=== PATIENT | male | born 1995 | race Caucasian/White ===

== ENCOUNTER → 2016-11-02 | Outpatient (CLI) | payer BC, OTHER ==
[2016-11-02 13:40] LABS: BLOOD UREA NITROGEN 20 MG/DL (7-18); CREATININE FOR GFR 1.23 MG/DL (0.70-1.30)
== END ==
LOC: M LAB 12:51
PROVIDERS: ATTEND Psychiatry & Neurology Neurology
DX: Q61.3 Polycystic kidney, unspecified (principal)

== ENCOUNTER → 2016-12-29 | Outpatient (REF) | payer OTHER ==
[2016-12-29 14:30] LABS: BASO % 0.4 % (0.0-1.0); EOS % 1.1 % (0.0-3.0); LARGE UNSTAINED CELL # 0.1 K/mm3 (0.0-0.4); LYMPH # 1.4 K/mm3 (1.5-6.5); LYMPH % 30.3 % (24.0-44.0); MEAN CORPUSCULAR HEMOGLOBIN 30.2 pg (27.0-33.0); MEAN CORPUSCULAR VOLUME 88.7 fl (80.0-96.0); MONO # 0.2 K/mm3 (0.0-0.8); MONO % 5.2 % (0.0-5.0); NEUTROPHILS # 2.8 K/mm3 (1.8-7.7); NEUTROPHILS % 61.9 % (36.0-66.0); PLATELET COUNT, AUTOMATED 281 k/mm3 (150-450); RED CELL DISTRIBUTION WIDTH 12.1 % (11.5-14.5); WHITE BLOOD COUNT 4.6 K/mm3 (4.0-10.0)
[2016-12-29 14:47] LABS: VITAMIN B12 LEVEL 520 PG/ML (247-911)
[2016-12-29 14:48] LABS: FOLATE 9.7 NG/ML (>5.4)
[2016-12-29 14:52] LABS: ALBUMIN 4.1 GM/DL (3.2-5.2); ALBUMIN/GLOBULIN RATIO 1.28 (1.00-1.93); ALKALINE PHOSPHATASE 55 U/L (45-117); ALT/SGPT 29 U/L (12-78); ANION GAP 8 MEQ/L (8-16); AST/SGOT 28 U/L (15-37); BILIRUBIN,TOTAL 0.5 MG/DL (0.2-1.0); BLOOD UREA NITROGEN 21 MG/DL (7-18); CALCIUM LEVEL 9.3 MG/DL (8.5-10.1); CARBON DIOXIDE LEVEL 28 MEQ/L (21-32); CHLORIDE LEVEL 105 MEQ/L (98-107); CREATININE FOR GFR 1.25 MG/DL (0.70-1.30); GLUCOSE, FASTING 65 MG/DL (70-105); POTASSIUM SERUM 4.3 MEQ/L (3.5-5.1); SODIUM LEVEL 141 MEQ/L (136-145); TOTAL PROTEIN 7.3 GM/DL (6.4-8.2)
[2016-12-29 15:26] LABS: ERYTHROCYTE SEDIMENTATION RATE 6 mm/hr (0-15)
[2016-12-31 15:11] LABS: VITAMIN E LEVEL 7.6 mg/L (5.3-17.5)
== END ==
LOC: M LABNEURO 12:56
PROVIDERS: ATTEND Psychiatry & Neurology Neurology
DX: H53.9 Unspecified visual disturbance (principal); H55.00 Unspecified nystagmus; Z13.29 Encounter for screening for other suspected endocrine disorder

== ENCOUNTER → 2017-01-05 | Outpatient (CLI) | payer OTHER ==
[2017-01-05 20:38] LABS: BLOOD UREA NITROGEN 26 MG/DL (7-18); CREATININE FOR GFR 1.27 MG/DL (0.70-1.30)
== END ==
LOC: M LRY 17:05
PROVIDERS: ATTEND Psychiatry & Neurology Neurology
DX: R03.0 Elevated blood-pressure reading, without diagnosis of hypertension (principal)

== ENCOUNTER → 2017-08-18 | Outpatient (REF) | payer OTHER ==
[2017-08-18 18:23] LABS: FERRITIN 182 NG/ML (26-388); PERCENT SATURATION 21.3 % (19.7-50.0); TOTAL IRON BINDING CAPACITY 314 UG/DL (250-450)
[2017-08-18 18:27] LABS: FOLATE 9.3 NG/ML; VITAMIN B12 LEVEL 623 PG/ML
== END ==
LOC: M LAB REF 16:59
DX: D64.9 Anemia, unspecified (principal)
CPT/HCPCS: 82746

== ENCOUNTER → 2018-04-26 | Outpatient (REF) | payer OTHER | LOC: M SFHCLERA 12:28 | DX: Z20.2 Contact with and (suspected) exposure to infections with a predominantly sexual mode of transmission (principal) ==

== ENCOUNTER → 2018-05-03 | Outpatient (CLI) | payer OTHER | LOC: M LRY 16:02 | DX: S69.91XA Unspecified injury of right wrist, hand and finger(s), initial encounter (principal); M79.89 Other specified soft tissue disorders; X58.XXXA Exposure to other specified factors, initial encounter; Y92.9 Unspecified place or not applicable; W22.8XXA Striking against or struck by other objects, initial encounter | CPT/HCPCS: 73110 ==

== ENCOUNTER 2019-02-19 10:57 | Emergency (ER) | payer BC, OTHER ==
[~2019-02-19] VITALS: Ht 182.9 cm; Wt 65.0 kg
[2019-02-19] MEDS ORDERED: SPIR-10 PO (11:05)
[2019-02-19] MEDS ORDERED: POTA10808 PO (11:05)
[2019-02-19] MEDS ORDERED: LISI-538 PO (11:05)
[2019-02-19 11:32] LABS: HEMATOCRIT 37.7 % (42.0-52.0); HEMOGLOBIN 12.6 g/dl (13.5-17.5); MEAN CORPUSCULAR HEMOGLOBIN 29.9 pg (27.0-33.0); MEAN CORPUSCULAR HGB CONC 33.4 g/dl (32.0-36.5); MEAN CORPUSCULAR VOLUME 89.3 fl (80.0-96.0); PLATELET COUNT, AUTOMATED 264 10^3/uL (150-450); RED BLOOD COUNT 4.22 10^6/uL (4.30-6.10); WHITE BLOOD COUNT 6.6 10^3/uL (4.0-10.0)
--- NOTE | 2019-02-19 11:53 | REP ---
Clinical: Left flank pain. History of polycystic kidney disease. Comparison: 08/16/2016. Findings: The bilateral kidneys are enlarged and demonstrate innumerable simple and complex cysts including complex cyst in the lower pole right kidney measuring 4.7 cm maximal diameter as well as complex cysts in the upper and lower pole left kidney measuring 4.4 cm and 5.7 cm maximal diameter respectively. There is no evidence for hydronephrosis. Bladder demonstrates wall thickening but without obvious mass lesion. Right kidney measures 21.2 x 10.4 x 9.4 cm. Left kidney measures 19.3 x 8.9 x 10.5 cm. Impression: Evidence for polycystic kidney disease with simple and complex cysts noted. No hydronephrosis. Further pathology cannot be excluded based on ultrasound. Electronically Signed by Fab Adams MD 02/19/2019 11:44 A
[2019-02-19] MEDS ORDERED: NS 1,000 ML IV ONE (12:00)
[2019-02-19] MEDS ORDERED: KETOROLAC 30 MG/ML VIAL (J1885) IV ONE (12:00)
[2019-02-19] MEDS ORDERED: MORPHINE 4 MG/ML 1ML VIAL/SYRINGE (J2270) IV ONE (12:15)
[2019-02-19 12:29] LABS: BLOOD UREA NITROGEN 27 MG/DL (7-18); CALCIUM LEVEL 9.4 MG/DL (8.5-10.1); CARBON DIOXIDE LEVEL 28 MEQ/L (21-32); CHLORIDE LEVEL 106 MEQ/L (98-107); CREATININE FOR GFR 1.53 MG/DL (0.70-1.30); GLOMERULAR FILTRATION RATE > 60.0 (>60); GLUCOSE, FASTING 85 MG/DL (70-100); POTASSIUM SERUM 4.4 MEQ/L (3.5-5.1); SODIUM LEVEL 140 MEQ/L (136-145)
--- NOTE | 2019-02-19 12:54 | REP ---
Clinical: Left flank pain. Technique: Axial noncontrast images from the lung bases to the pubic symphysis with coronal and sagittal re-formations. Findings: Evidence for polycystic kidney disease with innumerable bilateral cysts including few scattered proteinaceous complex cysts. No obvious hydroureteronephrosis, significant intrarenal or obstructing ureteral calculi. No perinephric inflammatory stranding. Associated scattered hepatic cysts are also identified. Spleen, pancreas, gallbladder, and bilateral adrenal glands are normal for noncontrast evaluation. The enteric system is without obstruction or acute inflammatory process. Pelvis demonstrates relatively normal bladder and prostate/seminal vesicles. No ascites. No free air. No adenopathy. Abdominal aorta without aneurysm. Musculoskeletal structures are intact. The lung bases are clear. Musculoskeletal structures are intact. Impression: Evidence for polycystic kidney disease including few hepatic cysts. No obvious acute process. Electronically Signed by Fab Adams MD 02/19/2019 12:45 P
[2019-02-19 13:14] VITALS: BP 119/72
[2019-02-19] MEDS ORDERED: NORC1TAB7 PO (13:21)
--- NOTE | 2019-02-20 13:27 | ED PDOC ---
Post-Departure Follow-Up shobha de leon faxed formal report of renal us for fu Catrachito Chung MD Feb 20, 2019 13:27
== END 2019-02-19 13:41 | disposition home or self-care (01) ==
LOC: M ED 10:57
DX: R10.9 Unspecified abdominal pain (principal); R11.0 Nausea; Q61.3 Polycystic kidney, unspecified; K76.89 Other specified diseases of liver; I10 Essential (primary) hypertension; Z79.899 Other long term (current) drug therapy
CPT/HCPCS: 74176; 76775; 80048; 81001; 85027; 96361; 96374; 99284; J2270

== ENCOUNTER → 2019-03-01 | Outpatient (CLI) | payer BC, OTHER ==
[~2019-03-01] MED LIST: ISOVUE-370 76% 100ML VIAL (Q9967) As Ordered ONE; LISI-538 PO; NORC1TAB7 PO; POTA10808 PO; SPIR-10 PO
--- NOTE | 2019-03-02 07:54 | REP ---
CT abdomen without and with IV contrast: History: Polycystic kidney disease. Polycystic liver changes. Abdomen pain. Comparison CT study is from February 19, 2019. CT contrast dose: 100 ml of intravenous Isovue [address] findings: Preliminary digital devulcanizer charger radiograph demonstrates a normal bowel gas pattern. There are multiple small hepatic cysts. The largest of these measures only 1.0 cm. No abnormality is seen in the spleen or pancreas. The gallbladder is small and contracted and appears unremarkable. The kidneys show marked enlargement with innumerable renal cysts enlarging the kidneys and replacing and thinning the cortex. Right renal length measurement is 19.3 cm and the left is 20.9 cm. No renal mass lesion is observed. No hydronephrosis is seen. No intrarenal calculus is observed. There are several small hyperdense cysts consistent with proteinaceous material. There is no evidence of ascites. Small and large intestinal bowel loops are normal. No bony destructive lesion is seen. Impression: Polycystic kidney disease changes. There are a few small cysts in the liver. No hydronephrosis or renal mass lesion is observed. Electronically Signed by Mj Fuentes MD 03/02/2019 11:59 A
== END ==
LOC: M RAD 16:42
PROVIDERS: ATTEND Internal Medicine Nephrology
DX: R10.9 Unspecified abdominal pain (principal); Q61.2 Polycystic kidney, adult type; Q44.6 Cystic disease of liver
CPT/HCPCS: 74170; Q9967

== ENCOUNTER → 2019-03-18 | Outpatient (REF) | payer BC, OTHER ==
[~2019-03-18] MED LIST changes: -ISOVUE-370 76% 100ML VIAL (Q9967) As Ordered ONE
[2019-03-18 18:11] LABS: APPEARANCE, URINE HAZY (CLEAR); BACTERIA, URINE AUTO NEGATIVE (NEGATIVE); BILIRUBIN, URINE AUTO NEGATIVE (NEGATIVE); BLOOD, URINE BLOOD 2+ (NEGATIVE); COLOR, URINE YELLOW (YELLOW); GLUCOSE, URINE (UA) AUTO NEGATIVE (NEGATIVE); KETONE, URINE AUTO NEGATIVE (NEGATIVE); LEUKOCYTE ESTERASE, URINE AUTO NEGATIVE (NEGATIVE); MUCUS, URINE SMALL (NEGATIVE); NITRITE, URINE AUTO NEGATIVE (NEGATIVE); PROTEIN, URINE AUTO 1+ mg/dL (NEGATIVE); RBC, URINE AUTO 1 /HPF (0-3); SPECIFIC GRAVITY URINE AUTO 1.009 (1.002-1.035); SQUAMOUS EPITHELIAL CELL UR AU 0 /HPF (0-6); UROBILINOGEN, URINE AUTO 0.2 mg/dL (0.0-2.0); WBC, URINE AUTO 4 /HPF (0-3)
== END ==
LOC: M SMT 16:57
PROVIDERS: ATTEND Nurse Practitioner Women's Health
DX: N32.89 Other specified disorders of bladder (principal); R31.29 Other microscopic hematuria

== ENCOUNTER 2019-08-16 10:48 | Observation (INO) | payer BC, OTHER ==
[~2019-08-16] VITALS: Ht 180.3 cm; Wt 65.0 kg
[~2019-08-16 10:48] MED LIST changes: +lisinopriL 20 MG TAB PO SCH
--- NOTE | 2019-08-16 11:51 | REP ---
Clinical: Lower back pain. History of polycystic kidney disease. Comparison: 03/01/2019. Findings: Lung bases are clear. Enlarged polycystic kidneys and hepatic cysts are again noted and essentially unchanged. Spleen, pancreas, gallbladder and bilateral adrenal glands are normal. The enteric system is without obstruction or acute inflammatory process. Mild fecal stasis cannot be excluded and should be correlated clinically. Bladder and prostate gland are grossly unremarkable. No ascites. No free air. No obvious adenopathy. Abdominal aorta without aneurysm. Musculoskeletal structures are intact. Impression: 1. Known polycystic kidney disease with few scattered hepatic cysts. 2. No obvious acute process. Electronically Signed by Fab Adams MD 08/16/2019 11:43 A
[2019-08-16 11:57] LABS: BASO % 0.2 % (0.0-1.0); EOS % 0.2 % (0.0-3.0); HEMATOCRIT 43.2 % (42.0-52.0); HEMOGLOBIN 14.3 g/dl (13.5-17.5); LYMPH # 1.2 10^3/uL (1.5-5.0); LYMPH % 11.5 % (24.0-44.0); MEAN CORPUSCULAR HEMOGLOBIN 28.9 pg (27.0-33.0); MEAN CORPUSCULAR HGB CONC 33.1 g/dl (32.0-36.5); MEAN CORPUSCULAR VOLUME 87.4 fl (80.0-96.0); MONO % 9.9 % (0.0-5.0); PLATELET COUNT, AUTOMATED 248 10^3/uL (150-450); RED BLOOD COUNT 4.94 10^6/uL (4.30-6.10); WHITE BLOOD COUNT 10.3 10^3/uL (4.0-10.0)
[2019-08-16 12:25] LABS: ALBUMIN 4.2 GM/DL (3.2-5.2); BILIRUBIN,DIRECT 0.2 MG/DL (0.0-0.2); BILIRUBIN,TOTAL 0.6 MG/DL (0.2-1.0); TOTAL PROTEIN 7.7 GM/DL (6.4-8.2)
[2019-08-16] MEDS ORDERED: NS 1,000 ML IV ONE (12:30)
[2019-08-16] MEDS ORDERED: HYDR-3713 PO (13:21)
--- NOTE | 2019-08-16 13:34 | HPEPDOC ---
General Date of Admission 08/16/19 Date of Service: Aug 16, 2019 Chief Complaint The patient is a 24-year-old male admitted with a reason for visit of Abnormal Labs. Source: Patient Exam Limitations: No limitations Timing/Duration: 24 hours Severity: Moderate History of Present Illness Patient is 24 years old male with past medical history of hypertension and polycystic kidney diseases presented hospital with bilateral flank pain. Patient stated that yesterday he started feeling pain all over his body associated with weakness. He did not have any nausea, vomiting, changes in urine, fever or chills Today in the area safety manager office patient was found to have creatinine 1.9 and he was recommended to be admitted to the hospital. In emergency room patient was found to have leukocytes count 10.3, urinalysis show microhematuria, patient's afebrile, abdominal CAT scan shows enlarged polycystic kidneys and hepatic cysts essentially unchanged. Patient denies fever, chills, nausea, vomiting, shortness of breath, chest pain, diarrhea or dysuria Home Medications Scheduled Lisinopril (Lisinopril) 20 Mg Tablet, 20 MG PO QAM, (Reported) Potassium Citrate (Potassium Citrate 10MEQ (Urocit-K)) 10 Meq Tablet.er, 2 TAB PO DAILY, (Reported) Spironolactone (Spironolactone) 25 Mg Tablet, 25 MG PO QAM, (Reported) Scheduled PRN Hydrocodone/Acetaminophen (Hydrocodone-Acetamin 5-325 mg) 1 Each Tablet, 1 TAB PO TID PRN for PAIN, (Reported) MDD 4 Allergies Coded Allergies: No Known Allergies (Unverified , 02/19/19) Past Medical History Medical History Polycystic kidney diseases, hypertension Family History Father had diabetes,polycystic kidney diseases currently on dialysis, hypertension Social History * Smoker: Denies Alcohol: Denies Drugs: denies A-FIB/CHADSVASC A-FIB History Current/History of A-Fib/PAF?: No Current PO Anticoag Therapy: No Review of Systems Constitutional: Reports: Weakness; Denies: Fever Eyes: Denies: Pain, Vision change ENT: Denies: Head Aches, Ear Pain Skin: Denies: Rash, Lesions Pulmonary: Denies: Dyspnea, Cough Cardiovascular: Denies: Chest Pain, Palpitations Gastrointestinal: Denies: Nausea, Vomiting Genitourinary: Reports: Other Symptoms (bilateral flank pain); Denies: Dysuria, Frequency Hematologic: Denies: Bruising Endocrine: Denies: Polydipsia Musculoskeletal: Denies: Neck Pain, Back Pain Neurological: Denies: Weakness Psych: Reports: Mood Normal Physical Examination General Exam: Positive: Alert, Cooperative Eye Exam: Positive: PERRLA Neck Exam: Positive: Supple; Negative: JVD Chest Exam: Positive: Clear to auscultation Heart Exam: Positive: Rate Normal Telemetry: Positive: No significant arrhythmia Abdomen Exam: Positive: Normal bowel sounds Extremity Exam: Negative: Clubbing Skin Exam: Positive: Nl turgor and temperature Neuro Exam: Positive: Normal Gait, Strength at 5/5 X4 ext, Cranial Nerves 3-12 NL Psych Exam: Positive: Mental status NL Vital Signs Vital Signs Date Time Temp Pulse Resp B/P (MAP) Pulse Ox O2 Delivery O2 Flow Rate FiO2 08/16/19 11:57 08/16/19 10:48 97.7 94 18 100 Room Air Laboratory Data Labs 24H Laboratory Tests 2 08/16/19 11:20: Immature Granulocyte % (Auto) 0.2, Neutrophils (%) (Auto) 78.0H, Lymphocytes (%) (Auto) 11.5L, Monocytes (%) (Auto) 9.9H, Eosinophils (%) (Auto) 0.2, Basophils (%) (Auto) 0.2, Neutrophils # (Auto) 8.0, Lymphocytes # (Auto) 1.2L, Monocytes # (Auto) 1.0H, Eosinophils # (Auto) 0.0, Basophils # (Auto) 0.0, Nucleated Red Blood Cells % (auto) 0.0, Total Bilirubin 0.6, Direct Bilirubin 0.2, Aspartate Amino Transf (AST/SGOT) 26, Alanine Aminotransferase (ALT/SGPT) 32, Alkaline Phosphatase 53, Total Protein 7.7, Albumin 4.2, Albumin/Globulin Ratio 1.20, Lipase 183 08/16/19 11:27: Urine Color YELLOW, Urine Appearance CLEAR, Urine pH 5.0, Urine Specific Lemmon 1.010, Urine Protein 1+H, Urine Glucose (UA) NEGATIVE, Urine Ketones NEGATIVE, Urine Blood 3+H, Urine Nitrite NEGATIVE, Urine Bilirubin NEGATIVE, Urine Urobilinogen 0.2, Urine Leukocyte Esterase NEGATIVE, Urine WBC (Auto) 3, Urine R BC (Auto) 8H, Urine Hyaline Casts (Auto) 0, Urine Bacteria (Auto) NEGATIVE, Urine Squamous Epithelial Cells 0, Urine Sperm (Auto) 08/16/19 11:45: POC Glucose (Misc Panel) 96, POC Sodium (Misc Panel) 137, POC Potassium (Misc Panel) 3.9, POC Chloride (Misc Panel) 99, POC Total CO2 (Misc Panel) 27.0, POC Blood Urea Nitrogen (Misc Panel 25, POC Ionized Calcium (Misc Panel) 4.6, POC Creatinine (Misc Panel) 1.9H, POC Hematocrit (Misc Panel) 43.0 CBC/BMP Laboratory Tests 08/16/19 11:20 Assessment/Plan Patient is 24 years old male with past medical history of hypertension and polycystic kidney diseases presented hospital with bilateral flank pain. Patient stated that yesterday he started feeling pain all over his body associated with weakness. He did not have any nausea, vomiting, changes in urine, fever or chills Today in the area safety manager office patient was found to have creatinine 1.9 and he was recommended to be admitted to the hospital. Problems (1) Acute kidney injury Status: Acute Problem Text: Unknown etiology for now Creatinine elevated to 1.[address] scan did not show ruptured cyst or acute intra-abdominal process Patient doesn't have leukocytosis, he is afebrile, urine analysis shows microhematuria. Unlikely he has a pyelonephritis given no fever, no pyuria Appreciate/agree with area safety manager consult (2) Polycystic kidney disease Status: Acute Problem Text: Follow-up with area safety manager Plan / VTE VTE Prophylaxis Ordered?: No VTE Exclusion Mechanical Proph: Low Risk for VTE BRYCE JASSO DO Aug 16, 2019 13:34
[2019-08-16] MEDS ORDERED: amLODIPine 10 MG TAB PO ONE (14:30)
[2019-08-16 14:45] VITALS: BP 138/96
[2019-08-16] MEDS: NS 1,000 ML IV SCH (14:50)
[2019-08-16] MEDS ORDERED: ACETAMINOPHEN TAB 650MG DOSE (2X325MG) PO PRN (15:00)
[2019-08-16] MEDS: SPIRONOLACTONE 25 MG TAB PO SCH (15:02)
[2019-08-16 15:10] LABS: CALCIUM LEVEL 8.9 MG/DL (8.5-10.1); CREATININE FOR GFR 1.71 MG/DL (0.70-1.30); GLOMERULAR FILTRATION RATE 53.1 (>60); POTASSIUM SERUM 4.1 MEQ/L (3.5-5.1)
[2019-08-16 17:58] LABS: POTASSIUM RANDOM URINE 47.3 MEQ/L; TOTAL PROTEIN,RANDOM URINE 31.3 MG/DL (0.0-12.0)
[2019-08-16 22:00] VITALS: BP 144/88
[2019-08-17] MEDS: NS 1,000 ML IV SCH ×3 (00:40→14:14)
[2019-08-17 06:00] VITALS: BP 128/66
[2019-08-17 06:42] LABS: ALBUMIN 3.3 GM/DL (3.2-5.2); CALCIUM LEVEL 8.9 MG/DL (8.5-10.1); CREATININE FOR GFR 1.56 MG/DL (0.70-1.30); MAGNESIUM LEVEL 2.1 MG/DL (1.8-2.4); PHOSPHORUS LEVEL 3.9 MG/DL (2.5-4.9); POTASSIUM SERUM 4.3 MEQ/L (3.5-5.1)
[2019-08-17] MEDS ORDERED: POTASSIUM CITRATE 1080 MG (10MEQ) TAB PO SCH (08:00)
[2019-08-17] MEDS: SPIRONOLACTONE 25 MG TAB PO SCH (08:26)
[2019-08-17 08:27] VITALS: BP 128/66
[2019-08-17] MEDS ORDERED: amLODIPine 10 MG TAB PO SCH (09:00)
[2019-08-17] MEDS ORDERED: INFLUENZA QUADRIVALENT PF VACCINE 0.5ML SYRINGE (90686) IM ONE (14:00)
--- NOTE | 2019-08-17 14:51 | DS.PDOC ---
Discharge Summary General Date of Admission Aug 16, 2019 at 10:49 Date of Discharge 08/17/19 Discharge Summary PROCEDURES PERFORMED DURING STAY: [None]. ADMITTING DIAGNOSES: Acute kidney injury Polycystic kidney disease DISCHARGE DIAGNOSES: Acute kidney injury Polycystic kidney disease COMPLICATIONS/CHIEF COMPLAINT: Acute Kidney Injury. HISTORY OF PRESENT ILLNESS: Patient is 24 years old male with past medical history of hypertension and polycystic kidney diseases presented hospital with bilateral flank pain. Patient stated that yesterday he started feeling pain all over his body associated with weakness. He did not have any nausea, vomiting, changes in urine, fever or chills Today in the top trimmer office patient was found to have creatinine 1.9 and he was recommended to be admitted to the hospital. In emergency room patient was found to have leukocytes count 10.3, urinalysis show microhematuria, patient's afebrile, abdominal CAT scan shows enlarged polycystic kidneys and hepatic cysts essentially unchanged. Patient denies fever, chills, nausea, vomiting, shortness of breath, chest pain, diarrhea or dysuria HOSPITAL COURSE: During hospital stay patient received IV fluid. His kidney function markedly improved, creatinine today 1.5 DISCHARGE MEDICATIONS: Please see below. ALLERGIES: Please see below. PHYSICAL EXAMINATION ON DISCHARGE: GENERAL APPEARANCE: Well-nourished, well-developed, not in apparent distress HEENT: Normocephalic, atraumatic. Mucous members moist and pink CARDIOVASCULAR: Regular rate and rhythm. No murmurs, rubs or gallops. Radial pulses are intact. There is no lower extremity edema LUNGS: CTA ABDOMEN: Abdomen is soft and nontender. MUSCULOSKELETAL: Range of motion is intact in all 4 extremities NEUROLOGICAL: Cranial nerves II-12 are grossly intact. Speech is not dysarthric LABORATORY DATA: Please see below. PROGNOSIS: Favorable ACTIVITY: As tolerated DIET: Regular DISCHARGE PLAN: Home DISPOSITION: 01 Home, Self-Care. DISCHARGE INSTRUCTIONS: 1. Drink plenty of fluid ITEMS TO FOLLOWUP ON ON OUTPATIENT: 1. Follow-up with top trimmer DISCHARGE CONDITION: Stable TIME SPENT ON DISCHARGE: Greater than 20 minutes. Vital Signs/I&Os Vital Signs Date Time Temp Pulse Resp B/P (MAP) Pulse Ox O2 Delivery O2 Flow Rate FiO2 08/17/19 08:27 77 128/66 08/17/19 06:00 97.5 20 99 Room Air I&O- Last 24 Hours up to 6 AM 08/17/19 06:00 Intake Total 1300 ml Output Total 1475 ml Balance -175 ml Laboratory Data Labs 24H Laboratory Tests 2 08/16/19 17:12: Urine Random Osmolality 378L, Urine Random Creatinine 93.0, Urine Random Total Protein 31.3H, Urine Random Sodium 43, Urine Random Potassium 47.3 08/17/19 06:00: Anion Gap 7L, Glomerular Filtration Rate 59.0L, Calcium Level 8.9, Phosphorus Level 3.9, Magnesium Level 2.1, Albumin 3.3# CBC/BMP Laboratory Tests 08/17/19 06:00 Discharge Medications Scheduled Lisinopril (Lisinopril) 20 Mg Tablet, 20 MG PO QAM, (Reported) Potassium Citrate (Potassium Citrate 10MEQ (Urocit-K)) 10 Meq Tablet.er, 2 TAB PO DAILY, (Reported) Spironolactone (Spironolactone) 25 Mg Tablet, 25 MG PO QAM, (Reported) Scheduled PRN Hydrocodone/Acetaminophen (Hydrocodone-Acetamin 5-325 mg) 1 Each Tablet, 1 TAB PO TID PRN for PAIN, (Reported) MDD 4 Allergies Coded Allergies: No Known Allergies (Unverified , 02/19/19) BRYCE JASSO DO Aug 17, 2019 14:51
--- NOTE | 2019-08-17 18:14 | CR ---
DATE OF CONSULTATION: 08/17/2019 REQUESTING PHYSICIAN: Dr. Cutler. CONSULTING PHYSICIAN: Dr. Vallejo. REASON FOR CONSULTATION: Acute kidney injury in this patient with polycystic kidney disease. CHIEF COMPLAINT: Back pain. HISTORY OF PRESENT ILLNESS: Jose Hu is previously unknown to me. He is a 24-year-old established office patient of Dr. Han with a past medical history of autosomal dominant polycystic kidney disease, hypertension and chronic kidney disease (CKD) stage III. Patient has a baseline creatinine of around 1.3-1.4. Patient states that he has chronic back pain, as he works in construction and he is usually able to tolerate a good degree of musculoskeletal pain. On , he developed right lower back pain that also radiated to the left back and then he felt like it was all over his body, "My whole body was hurting from head to toe." He took some hydrocodone that he had at home that was left over from an episode of cyst rupture in the summer and he slept. On Monday, he was still in discomfort. He denied any gross hematuria. He had a routinely scheduled followup appointment in the nephrology office. He was seen by Dr. Han, he was found to have a creatinine of 1.9 and he was subsequently directed to come to the emergency room for CAT scan to check and see if there was any cyst rupture, bleed or infected cyst. The patient arrived to the emergency room (ER). He denied any use of NSAIDs at home. CAT scan in the emergency room was essentially unchanged from his old prior CAT scans. The patient received intravenous (IV) fluids. He received Tylenol. He was seen and examined this morning. He has been walking around the unit visiting his grandmother, who is also admitted, and he reports that his pain has completely resolved and he feels quite comfortable. Labs show an improvement in renal function down to 1.5. The patient denies any dysuria, hematuria trouble voiding, and he denies any recurrence of his back pain. PAST MEDICAL HISTORY: 1. Autosomal dominant polycystic kidney disease. 2. Hypertension. 3. Hepatic cysts. ALLERGIES: No known drug allergies. HOME MEDICATIONS: - lisinopril 20 mg in the morning - potassium citrate 10 mEq twice daily - spironolactone 25 mg in the morning - Percocet as needed FAMILY HISTORY: Significant for a father with polycystic kidney disease and hypertension. SOCIAL HISTORY: He works in construction. He denies alcohol, drugs or smoking. PAST SURGICAL HISTORY: None reported. REVIEW OF SYSTEMS: CONSTITUTIONAL: He denies fevers or chills. EYES: He denies visual changes or tearing. ENT: He denies rhinorrhea or dysphasia. SKIN: Denies rash or ulcers. PULMONARY: Denies shortness of breath or cough. CARDIAC: Denies chest pain, palpitations, leg edema. GASTROINTESTINAL: Denies nausea, vomiting, diarrhea. GENITOURINARY: Reports chronic flank pain. Denies dysuria or hematuria. HEMATOLOGIC: Denies easy bleeding or bruising. ENDOCRINE: Denies diabetes or thyroid disorders. MUSCULOSKELETAL: Reports chronic musculoskeletal aches and pains, which he attributes to his job. NEUROLOGIC: He denies seizures or syncope. PSYCHIATRIC: Denies anxiety or depression. PHYSICAL EXAMINATION: Temperature 97.5, pulse 77, respiratory rate 20, blood pressure 128/66, saturating 99% on room air. Intake yesterday was 1300. Urine output today is 1700. Weight in the bed scale 65 kg. GENERAL: Patient is seen walking around the floor visiting his grandmother and then also at the bedside. Young male, well built, no acute distress. Extraocular muscles are intact. Pupils are round and reactive to light. Mucosa is moist. Dentition is intact. Neck is supple. Jugular veins are not elevated. CARDIAC: S1, S2. Regular rate and rhythm. No murmur. No edema in the extremities. LUNGS: Clear to auscultation bilaterally. No crackle, rale or rhonchus. ABDOMEN: Soft and nontender. Positive bowel sounds. His kidneys are enlarged and palpable. SKIN: Normal temperature and turgor. EXTREMITIES: Negative for clubbing, cyanosis or edema. NEUROLOGIC: Oriented x3. No focal deficits. PSYCHIATRIC: Appropriate mood and affect. LABORATORY DATA: White count 10.3, hemoglobin 14.3. Sodium 138, potassium 4.3, bicarbonate 24, creatinine 1.5. Urine analysis: 1+ protein with a spot ratio of about 300 mg and 8 RBC per high-powered field. IMAGING STUDIES: CT scan abdomen and pelvis noncontrast August 16: Polycystic kidney disease with few scattered cysts. No adenopathy. No free air. Abdominal aorta without aneurysm. Enteric system without inflammatory process. INPATIENT MEDICATIONS: Reviewed by myself: - normal saline at 120 mL per hour - Tylenol as needed - potassium citrate - spironolactone 25 mg by mouth every morning PROBLEMS: 1. Chronic kidney disease (CKD) stage III with superimposed mild acute kidney injury in the setting of low back pain/generalized body aches and pains. There was a concern for cyst rupture or infection. His CAT scan was reviewed and showed stable findings. His urinalysis is negative for bacteria, leukocyte esterase or any nitrites and the microscopic hematuria is quite mild, at only 8 RBCs per high powered field. The patient received IV fluids overnight. His creatinine has improved to 1.5. Baseline creatinine is 1.3-1.4. His pain has resolved. He is stable for discharge from nephrology point of view with outpatient followup in the nephrology office within the next two weeks. 2. Hypertension. Blood pressures are well-controlled and it is okay to continue his usual home regimen of lisinopril and spironolactone. In the hospital, he was given amlodipine instead because of the mild acute kidney injury.
== END 2019-08-17 14:18 | disposition home or self-care (01) ==
LOC: M ED 10:48 → M ED INP 10:49 → M MSPAV 14:46
PROVIDERS: ADMIT Internal Medicine; ATTEND Internal Medicine
DX: N17.9 Acute kidney failure, unspecified (principal); Q61.2 Polycystic kidney, adult type; K76.89 Other specified diseases of liver; R53.1 Weakness; M79.10 Myalgia, unspecified site; N18.3 Chronic kidney disease, stage 3 (moderate); I12.9 Hypertensive chronic kidney disease with stage 1 through stage 4 chronic kidney disease, or unspecified chronic kidney disease; M54.9 Dorsalgia, unspecified; Z79.899 Other long term (current) drug therapy; Z82.71 Family history of polycystic kidney

== ENCOUNTER → 2021-01-23 | Outpatient (CLI) | payer BC, OTHER ==
[~2021-01-23] MED LIST changes: +HYDR-3713 PO; -LISI-538 PO; +LISI20TA33 PO; -lisinopriL 20 MG TAB PO SCH
--- NOTE | 2021-01-23 11:39 | REP ---
INDICATION: OTHER ACUTE KIDNEY FAILURE, RENAL COLIC COMPARISON: 08/16/2019 TECHNIQUE: Axial noncontrast images from the lung bases to the pubic symphysis with coronal and sagittal reformations. This CT examination was performed using the following dose reduction techniques: Automated exposure control, adjustment of mA and/or kv according to the patient's size, and use of iterative reconstruction technique. FINDINGS: Lung bases are clear. Visualized heart and pericardium normal. Polycystic kidney disease again noted and without significant change from prior examination. Findings include enlarged kidneys with innumerable simple and complex cysts as well as small scattered vague calcifications. No evidence for hydronephrosis or perinephric stranding. Underlying mass lesion cannot be excluded. Liver again demonstrates few simple appearing cysts again consistent with polycystic kidney syndrome. Spleen, pancreas, gallbladder, and bilateral adrenal glands are essentially normal. The enteric system is without obstruction or obvious acute inflammatory process. Pelvis demonstrates normal bladder and age-appropriate prostate/seminal vesicles. No ascites. No free air. No obvious adenopathy. Abdominal aorta without aneurysm. Musculoskeletal structures intact and without acute osseous abnormality. IMPRESSION: Findings consistent with polycystic kidney syndrome unchanged from prior examination. <Electronically signed by Fab Adams > 01/23/21 0195
== END ==
LOC: M RAD 11:10
PROVIDERS: ATTEND Internal Medicine Nephrology
DX: N17.8 Other acute kidney failure (principal); N23 Unspecified renal colic; Z87.442 Personal history of urinary calculi

== ENCOUNTER → 2021-05-26 | Outpatient (REF) | payer BC, OTHER | LOC: M LAB REF 17:11 | PROVIDERS: ATTEND Internal Medicine Nephrology | DX: N18.32 Chronic kidney disease, stage 3b (principal) ==

== ENCOUNTER → 2022-02-08 | Outpatient (CLI) | payer BC, OTHER ==
[2022-02-08 19:33] LABS: ALBUMIN 3.6 GM/DL (3.2-5.2); BILIRUBIN,DIRECT 0.1 MG/DL (0.0-0.2); BILIRUBIN,TOTAL 0.2 MG/DL (0.2-1.0); TOTAL PROTEIN 7.3 GM/DL (6.4-8.2)
== END ==
LOC: M LAB 18:43
PROVIDERS: ATTEND Internal Medicine Nephrology
DX: Q61.2 Polycystic kidney, adult type (principal)

== ENCOUNTER → 2022-03-11 | Outpatient (CLI) | payer BC, OTHER ==
[2022-03-11 19:49] LABS: BILIRUBIN,DIRECT 0.1 MG/DL (0.0-0.2); BILIRUBIN,TOTAL 0.6 MG/DL (0.2-1.0); TOTAL PROTEIN 7.1 GM/DL (6.4-8.2)
== END ==
LOC: M LAB 18:21
PROVIDERS: ATTEND Internal Medicine Nephrology
DX: Q61.2 Polycystic kidney, adult type (principal)

== ENCOUNTER 2022-04-15 08:39 | Emergency (ER) | payer BC, OTHER ==
[~2022-04-15] VITALS: Ht 177.8 cm; Wt 56.8 kg
[2022-04-15] MEDS ORDERED: [UNRECOGNIZED DRUG - CODE] PO (08:50)
[2022-04-15 12:01] VITALS: BP 158/98
== END 2022-04-15 12:14 | disposition home or self-care (01) ==
LOC: M ED 08:39
DX: U07.1 COVID-19 (principal); I10 Essential (primary) hypertension; Z79.899 Other long term (current) drug therapy; Z79.811 Long term (current) use of aromatase inhibitors

== ENCOUNTER → 2024-03-19 | Outpatient (REF) | payer BC ==
[~2024-03-19] MED LIST changes: +[UNRECOGNIZED DRUG - CODE] PO
[2024-03-19 18:32] LABS: ALBUMIN 4.4 G/DL (3.2-5.2); ALKALINE PHOSPHATASE 45 U/L (46-116); ALT/SGPT 33 U/L (7.0-40); AST/SGOT 24 U/L (<34); BILIRUBIN,DIRECT < 0.1 MG/DL (<0.4); BILIRUBIN,TOTAL 0.4 MG/DL (0.3-1.2); TOTAL PROTEIN 7.5 G/DL (5.7-8.2)
== END ==
LOC: M LAB REF 17:11
PROVIDERS: ATTEND Internal Medicine Nephrology
DX: Q61.2 Polycystic kidney, adult type (principal)